=== PATIENT | female | born 1995 | race Caucasian/White ===

== ENCOUNTER 2016-12-10 00:44 | Emergency (ER) | payer BC, OTHER ==
[2016-12-10] MEDS ORDERED: HYDROmorphONE/DILAUDID 1 MG/ML SYR IVP ONE (01:05)
[2016-12-10] MEDS ORDERED: PROPOFOL 200 MG/20 ML VIAL ONE (01:15)
[2016-12-10] MEDS ORDERED: PROPOFOL 200 MG/20 ML VIAL IVP ONE (01:17)
--- NOTE | 2016-12-10 01:23 | EDPHY ---
H & P Stated Complaint: left knee injury- patella? Time Seen by Provider: 12/10/16 00:49 HPI/ROS: HPI: The patient presents with left knee pain which began after dancing at approximately 12:05 a.m. today. She fell and had immediate pain which is sharp and severe and has been constant. She is unable to bear weight and has obvious deformity to her knee. She does not have any numbness or tingling to the leg. She has no prior history of similar injury. REVIEW OF SYSTEMS Constitutional: No fever, no chills. Eyes: No discharge. Musculoskeletal: No back pain. Skin: No rashes. PMHx: Healthy TRAUMA PHYSICAL General Appearance: Alert, no distress Head: Atraumatic Eyes: Pupils equal, round Respiratory: Breathing comfortably Skin: No lacerations, No abrasion Extremities: Left knee with obvious lateral patella deformity, 2+ DP pulses, sensation intact to light touch Neurological: A&Ox3, GCS=15,normal motor function with 5/5 strength in all 4 extremities, normal sensory exam Source: Patient Exam Limitations: No limitations - Personal History Current Tetanus Diphtheria and Acellular Pertussis (TDAP): Yes - Medical/Surgical History Hx Asthma: No Hx Chronic Respiratory Disease: No Hx Diabetes: No Hx Cardiac Disease: Yes Hx Renal Disease: No Hx Cirrhosis: No Hx Alcoholism: No Hx HIV/AIDS: No Hx Splenectomy or Spleen Trauma: No Other PMH: GOYO CARDIOGENIC SYNCOPE - Social History Smoking Status: Never smoked Constitutional: Initial Vital Signs Heart Rate 100 12/10/16 01:05 Respiratory Rate 28 H 12/10/16 01:05 Blood Pressure 119/73 12/10/16 01:05 O2 Sat (%) 99 12/10/16 01:05 O2 Delivery Mode [Procedural Room Air 3rd] O2 Delivery Mode [Procedural Non-Rebreather Mask 2nd] O2 Delivery Mode [Procedural Non-Rebreather Mask 1st] O2 Delivery Mode [.Immediate Room Air Pre-Procedure] O2 Delivery Mode Room Air O2 (L/minute) 15 Allergies/Adverse Reactions: aspirin Allergy (Verified 12/10/16 01:02) NSAIDS (Non-Steroidal Anti-Inflamma Allergy (Verified 12/10/16 01:02) Home Medications: Medication Instructions Recorded Obcp 11/01/13 Zoloft 11/01/13 Midodrine HCl 01/23/14 Cefdinir [Omnicef] 300 mg PO Q12 #20 cap 09/17/14 Hydrocodone/APAP 5/325 [Henderson 1 - 2 tab PO Q6H PRN #15 tab 12/10/16 5/325 (*)] Medical Decision Making - Diagnostics Imaging: Left Knee films two views show lateral patella dislocation, no fracture, interpreted by me, radiology interpretation pending. Postreduction left knee films two views show no dislocation, no fracture, interpreted by me, radiology interpretation pending. Procedures: PROCEDURAL SEDATION Procedure: Procedural sedation. Indication: Left patella dislocation The patient is an appropriate candidate to tolerate procedural sedation. The patient's vital signs and mental status are appropriate. The risks, benefits and alternatives of the sedation were discussed with the patient. The patient is ASA classification 2. The patient's Mallampati airway score was 1 and the patient did meet the 3-3-2 airway measurements. A time out was completed. The patient was sedated with propofol fall 70 mg. The patient was monitored with continuous pulse oximetry, patient monitor and end tidal CO2. There were no complications and no significant hypoxemia. I performed both the sedation and the procedure. The total time I spent at the bedside during the procedural sedation was 10 minutes. The patient was examined after the procedural sedation and has returned to their pre-sedation baseline with normal vital signs and a normal examination. REDUCTION Procedure: Dislocation reduction. Indication: Left patella Dislocation The left patella was reduced in the usual fashion without complications. Post reduction the patient's neurovascular exam is normal. Post reduction x-ray demonstrates reduction of the joint to the anatomic position. The procedure was performed by myself. ED Course/Re-evaluation: 1:00 a.m.- I met the paramedics at the bedside to obtain report. The patient has received fentanyl 200 mcg by the paramedics. She is still in significant amount of pain. 1:15 a.m.- The patient received 1 mg of Dilaudid and I attempted reduction at the bedside, however the patient's pain is too severe to tolerate this. We plan for procedural sedation. 1:24 a.m.- The patient has received sedation with propofol, reduction was successful. She is now recuperating. She will be placed in a knee immobilizer. She already has crutches at home. I have given her information for orthopedics follow-up. Differential Diagnosis: This is a healthy 21-year-old female who had a fall while dancing sustaining a left patellar dislocation. She is neurovascularly intact. Differential diagnosis includes knee sprain, knee fracture, knee dislocation. - Data Points Medications Given: Discontinued Medications Diphenhydramine HCl (Benadryl Injection) 25 mg IVP EDNOW ONE Stop: 12/10/16 01:01 Last Admin: 12/10/16 01:10 Dose: 25 mg Hydromorphone HCl (Dilaudid) 1 mg IVP EDNOW ONE Stop: 12/10/16 01:06 Last Admin: 12/10/16 01:00 Dose: 1 mg Propofol (Diprivan) 70 mg IVP EDNOW ONE Stop: 12/10/16 01:18 Last Admin: 12/10/16 01:17 Dose: 70 mg Departure - Departure Disposition: Home, Routine, Self-Care Clinical Impression: Patellar dislocation Condition: Good Instructions: Patellar Dislocation (ED), Knee Immobilizer (ED) Additional Instructions: Please wear the knee immobilizer for the next 1 week or until your seen by Orthopedics. You should use crutches with this. You should use ice as needed in elevate the knee when you can. Referrals: En Ramírez MD [Medical Doctor] - As per Instructions Prescriptions: Hydrocodone/APAP 5/325 [Henderson 5/325 (*)] 1 - 2 tab PO Q6H PRN #15 tab PRN Reason: Pain, Breakthrough
[2016-12-10 01:48] VITALS: TEMP 98.1
[2016-12-10 02:27] VITALS: BP 117/74; PULSE 81; RESP 16; O2SAT 96
--- NOTE | 2016-12-10 08:10 | DX ---
Two Views, Left Knee December 10, 2016, 0100. Clinical Indication: Left knee deformity. Findings: There is lateral dislocation of the patella. There is no fracture. The remainder of the kne e is unremarkable. Impression: Lateral patellar dislocation.
--- NOTE | 2016-12-10 08:11 | DX ---
Left Knee, Two Views December 10, 2016, 0133 Hours Indication: Postreduction. Comparison: December 10, 2016, at 0100 hours. Findings: The dislocated knee cap has been reduced into anatomic positioning. There is a moderate eff usion. There is no fracture. Impression: Anatomic positioning of the patella postreduction.
== END 2016-12-10 02:27 | disposition home or self-care (01) ==
LOC: EDBD → EDUNIT#
PROC: 0QSFXZZ Reposition Left Patella, External Approach (ICD-10-PCS; principal; 2016-12-10)
DX: S83.005A Unspecified dislocation of left patella, initial encounter (principal); W19.XXXA Unspecified fall, initial encounter
CPT/HCPCS: 96374; J1200; J2704